=== PATIENT | female | born 1945 | race Caucasian/White ===

== ENCOUNTER 2017-09-15 14:39 | Emergency (ER) | payer MEDICARE, BC ==
--- NOTE | 2017-09-15 15:43 | ER Document Report ---
ED Cardiac - General Chief Complaint: Chest Pain Stated Complaint: CHEST PAIN Time Seen by Provider: 09/15/17 15:31 Mode of Arrival: Medic Information source: Patient TRAVEL OUTSIDE OF THE [place] IN LAST 30 DAYS: No - HPI Patient complains to provider of: Chest pain Was the onset of pain: Gradual Is the pain a: New problem Chest pain location: Back - L. TRAPEZIUS, Other - L. PECTORAL Quality of pain: Pressure, Other - "SORENESS," MOSTLY Chest pain radiation location: Back - L. TRAPEZIUS, Neck - L. POSTERIOR, NO ANT. NECK PAIN Severity now: Moderate Severity at worst: Moderate Associated symptoms: Back pain, Neck pain. denies: Diaphoresis, Dizziness, Jaw pain, Lightheaded, Nausea/vomiting, Shortness of breath, Syncope Exacerbated by: Deep breaths, Other - MOVEMENT OF L. UPPER EXTREMITY Relieved by: Rest Similar symptoms previously: No Recently seen / treated by doctor: No - [facility] 1-1/2 WKS AGO - Related Data Allergies/Adverse Reactions: No Known Allergies Allergy (Unverified 09/15/17 14:55) Past Medical History - General Information source: Patient - Social History Smoking Status: Unknown if Ever Smoked Cigarette use (# per day): No Chew tobacco use (# tins/day): No Frequency of alcohol use: None Drug Abuse: None Lives with: Alone Family History: None Patient has suicidal ideation: No Patient has homicidal ideation: No - Past Medical History Cardiac Medical History: Reports: None Pulmonary Medical History: Reports: None EENT Medical History: Reports: None Neurological Medical History: Reports: None Endocrine Medical History: Reports: None Renal/ Medical History: Reports: None. Denies: Hx Peritoneal Dialysis Malignancy Medical History: Reports: None GI Medical History: Reports: None Musculoskeletal Medical History: Reports None Skin Medical History: Reports None Psychiatric Medical History: Reports: None Traumatic Medical History: Reports: None Past Surgical History: Reports: Hx Hysterectomy Review of Systems - Review of Systems Constitutional: No symptoms reported EENT: No symptoms reported Cardiovascular: See HPI, Chest pain Respiratory: See HPI. denies: Cough, Short of breath, Wheezing Gastrointestinal: No symptoms reported Genitourinary: No symptoms reported Female Genitourinary: Post menopausal Musculoskeletal: No symptoms reported Skin: No symptoms reported Neurological/Psychological: No symptoms reported Physical Exam - Vital signs Vitals: Pulse Resp BP Pulse Ox 84 16 163/94 H 98 09/15/17 14:53 09/15/17 14:53 09/15/17 14:53 09/15/17 14:53 Interpretation: Hypertensive - General General appearance: Appears well, Alert In distress: None - HEENT Head: Normocephalic Eyes: Normal Conjunctiva: Normal Ears: Normal Nasal: Normal Mouth/Lips: Normal Mucous membranes: Normal Pharynx: Normal Neck: Normal - Respiratory Respiratory status: No respiratory distress Chest status: Tender - L. SUBCLAVICULAR Breath sounds: Normal - Cardiovascular Rhythm: Regular Heart sounds: Normal auscultation Murmur: No - Abdominal Inspection: Normal Distension: No distension Bowel sounds: Normal - Back Back: Normal, Tender - MARKEDLY, L. TRAPEZIUS - Extremities General upper extremity: Normal inspection General lower extremity: Normal inspection Shoulder: Normal - Neurological Neuro grossly intact: Yes Cognition: Normal Orientation: AAOx4 - Psychological Associated symptoms: Normal affect, Normal mood - Skin Skin Temperature: Warm Skin Moisture: Dry Skin Color: Normal Skin Turgor: Elastic Course - Re-evaluation Re-evalutation: 09/15/17 19:30 Patient states her pain is much improved after Toradol. Results of emergency department evaluation discussed. Will discharge home with symptomatic treatment. - Vital Signs Vital signs: Temp Pulse Resp BP Pulse Ox 98.6 F 84 15 141/71 H 95 09/15/17 15:08 09/15/17 14:53 09/15/17 15:05 09/15/17 15:05 09/15/17 15:05 - Laboratory Result Diagrams: 09/15/17 14:20 09/15/17 14:20 Laboratory results interpreted by me: 09/15/17 14:20 Glucose 136 H Creatine Kinase 21 L - Diagnostic Test Radiology reviewed: Image reviewed, Reports reviewed - EKG Interpretation by Oh EKG shows normal: Sinus rhythm, [place], Intervals, ST-T Waves. abnormal: QRS Complexes - ? OLD INF. M.I. LATE TRANSITION Rate: Normal Rhythm: NSR Discharge - Discharge Clinical Impression: Chest wall pain Condition: Stable Disposition: HOME, SELF-CARE Instructions: Chest Wall Pain ([facility]), Anti-Inflammatory Medication ([facility]), Muscle Relaxers ([facility]) Additional Instructions: AVOID PAINFUL ACTIVITY. TAKE IBUPROFEN IF NEEDED FOR PAIN RELIEF. TAKE VALIUM (DIAZEPAM) IF NEEDED FOR MUSCLE RELAXATION. FOLLOW UP IF NOT IMPROVING IN 48 HOURS, OR SOONER IF WORSE ANY TIME. Prescriptions: Diazepam [Valium 5 Mg Tablet] 5 mg PO Q8HP PRN #10 tablet PRN Reason: FOR MUSCLE RELAXATION Ibuprofen [Motrin 800 mg Tablet] 800 mg PO Q8 PRN #20 tablet PRN Reason: For Pain Referrals: LUISA HAYDEN III, MD [Primary Care Provider] - Follow up as needed
--- NOTE | 2017-09-15 15:59 | RADIOLOGY REPORT (SQ) ---
EXAM DESCRIPTION: CHEST 2 VIEWS COMPLETED DATE/TIME: 09/15/2017 3:39 pm REASON FOR STUDY: chest pain COMPARISON: None. EXAM PARAMETERS: NUMBER OF VIEWS: two views TECHNIQUE: Digital Frontal and Lateral radiographic views of the chest acquired. RADIATION DOSE: NA LIMITATIONS: Overlying monitoring wires FINDINGS: LUNGS AND PLEURA: Monitoring wires are overlying the patient's chest. There are bibasilar airspace opacities. No sizable pleural effusion or pneumothorax. MEDIASTINUM AND HILAR STRUCTURES: No masses or contour abnormalities. HEART AND VASCULAR STRUCTURES: Heart normal size. No evidence for failure. BONES: No acute findings. HARDWARE: None in the chest. IMPRESSION: Bibasilar airspace opacities, may represent atelectasis or pneumonia. TECHNICAL DOCUMENTATION: JOB ID: [id number] 2010 [employer]- All Rights Reserved Reading location - IP/workstation name: [facility]
[2017-09-15 16:02] LABS: ABSOLUTE EOSINOPHILS # (AUTO) 0.2 10^3/uL (0.0-0.6); ABSOLUTE LYMPHOCYTES (AUTO) 1.6 10^3/uL (0.5-4.7); ABSOLUTE MONOCYTES (AUTO) 0.5 10^3/uL (0.1-1.4); ABSOLUTE NEUT (AUTO) 5.2 10^3/uL (1.7-8.2); BASOPHILS % (AUTO) 0.5 % (0-2); EOSINOPHILS % (AUTO) 2.9 % (0-6); HEMATOCRIT 43.5 % (36.0-47.0); HEMOGLOBIN 14.6 g/dL (12.0-15.5); LYMPHOCYTES % (AUTO) 20.6 % (13-45); MEAN CORPUSCULAR HEMOGLOBIN 28.8 pg (27.0-33.4); MEAN CORPUSCULAR HGB CONC 33.6 g/dL (32.0-36.0); MEAN CORPUSCULAR VOLUME 86 fl (80-97); PLATELET COUNT 238 10^3/uL (150-450); RED BLOOD COUNT 5.06 10^6/uL (3.72-5.28); RED CELL DISTRIBUTION WIDTH 12.8 % (11.5-14.0); TOTAL CELLS COUNTED % (AUTO) 100 %; WHITE BLOOD COUNT 7.6 10^3/uL (4.0-10.5)
[2017-09-15 16:07] LABS: INTERNATIONAL RATION (INR) 1.01; PROTHROMBIN TIME 13.8 SEC (11.4-15.4)
[2017-09-15 16:23] LABS: ALANINE AMINOTRANSFERASE 17 U/L (9-52); ALBUMIN 4.1 g/dL (3.5-5.0); ALKALINE PHOSPHATASE 79 U/L (38-126); ANION GAP 10 (5-19); ASPARTATE AMINO TRANSFERASE 24 U/L (14-36); BILIRUBIN,DIRECT 0.3 mg/dL (0.0-0.4); BILIRUBIN,TOTAL 0.4 mg/dL (0.2-1.3); BLOOD UREA NITROGEN 17 mg/dL (7-20); CALCIUM 9.7 mg/dL (8.4-10.2); CARBON DIOXIDE 30 mmol/L (22-30); CHLORIDE 102 mmol/L (98-107); CREATINE KINASE 21 U/L (30-135); GLUCOSE 136 mg/dL (75-110); POTASSIUM 3.7 mmol/L (3.6-5.0); SODIUM 142.4 mmol/L (137-145); TOTAL PROTEIN 7.2 g/dL (6.3-8.2)
[2017-09-15 16:36] LABS: CREATINE KINASE MB 0.45 ng/mL (<4.55)
[2017-09-15 16:37] LABS: TROPONIN I < 0.012 ng/mL
[2017-09-15] MEDS: KETOROLAC TROMETHAMINE INJ/PF 30 MG/1 ML SDV IV ONE (17:55)
[2017-09-15 19:40] VITALS: BP 136/71
--- NOTE | 2017-09-15 21:07 | EKG REPORT ---
SEVERITY:- OTHERWISE NORMAL ECG - SINUS RHYTHM BORDERLINE LEFT AXIS DEVIATION : Confirmed by: Maricel Philip MD 15-Sep-2017 21:06:10
--- NOTE | 2017-09-15 21:07 | EKG REPORT ---
SEVERITY:- ABNORMAL ECG - SINUS RHYTHM PROBABLE INFERIOR INFARCT, OLD ABNRM R PROG, CONSIDER ASMI OR LEAD PLACEMENT : Confirmed by: Maricel Philip MD 15-Sep-2017 21:06:18
== END 2017-09-15 19:45 | disposition home or self-care (01) ==
LOC: ER 14:39
DX: R07.89 Other chest pain (principal); M54.9 Dorsalgia, unspecified; M54.2 Cervicalgia; Z90.710 Acquired absence of both cervix and uterus
CPT/HCPCS: 93005; 99285; 96374; 36415; 82553; 82550; 85025; 85610; 80053; 84484; 71046; 93010; J1885

== ENCOUNTER → 2017-11-29 | Outpatient (CLI) | payer MEDICARE, BC ==
--- NOTE | 2017-11-29 13:05 | RADIOLOGY REPORT (SQ) ---
EXAM DESCRIPTION: NM GASTRIC EMPTYING STUDY COMPLETED DATE/TIME: 11/29/2017 12:53 pm REASON FOR STUDY: N/V (R11.2) R11.2 NAUSEA WITH VOMITING, UNSPECIFIED COMPARISON: None. RADIONUCLIDE AND DOSE: 2.1 millicuries Tc-99m Sulfur Colloid. Egg salad sandwich The route of agent administration: Oral. TECHNIQUE: 1 minute serial static imaging performed at time of meal, 1 hour, 2 hours, 3 hours, and 4 hours as needed. Once stomach reaches 90% emptying, the test is complete. Image intensity values pl otted with respect to time with linear regression algorithm. LIMITATIONS: None. FINDINGS: Patient was observed for 4 hours. Immediate post meal serves as baseline. Gastric emptying at 30 minutes was 13%. Gastric emptying at 60 minutes was 27%. Gastric emptying at 90 minutes was 40%. Gastric emptying at 120 minutes was 53% Gastric emptying at 240 minutes was 100%. Normal values: 60 minutes: 30-90% retained. If less than 30%, abnormally rapid emptying. If greater than 90%, del ayed gastric emptying. 120 minutes: <60% retained. If greater than 60%, delayed gastric emptying. 240 minutes: <10% retained. If greater than 10%, delayed gastric emptying. IMPRESSION: NORMAL GASTRIC EMPTYING. TECHNICAL DOCUMENTATION: JOB ID: [id number] [employer]- All Rights Reserved rev Reading location - IP/workstation name: [facility]
== END ==
LOC: RAD 07:25
PROVIDERS: ATTEND Internal Medicine Gastroenterology
DX: R11.2 Nausea with vomiting, unspecified (principal)
CPT/HCPCS: 78264; A9541